=== PATIENT | female | born 1965 | race Caucasian/White ===

== ENCOUNTER 2017-12-29 08:51 | Inpatient (IN) ==
[~2017-12-29 08:51] MED LIST: ACETAMINOPHEN 500 MG TABLET PO ONE; DEXAMETHASONE 4 MG/ML INJECTION IVP ONE; EPINEPHrine PF 0.25 MG, BUPIVACAINE 0.25% PF 30 ML, KETOROLAC INJ 60 MG in NS 30 ML OPSITE ONE; FAMOTIDINE PB 20 MG/50 ML BAG IV ONE; LIDOCAINE 1% (10mg/ml) 2mL INJ PF SDV ID ONE; METOCLOPRAMIDE 10mg/2ml INJECTION IVP ONE; ONDANSETRON 4 MG/2 ML INJECTION IVP ONE; TRANEXAMIC ACID 1,000 MG in NS 100 ML IV ONE; VANCOMYCIN 1,000 MG INJECTION ONE
[2017-12-29 09:31] VITALS: BMI 37.9
[2017-12-29] MEDS: LR 1,000 ML IV SCH ×2 (09:55→13:00)
[2017-12-29] MEDS: NOZIN NASAL SWAB NAS SCH ×5 (10:32→21:29)
--- NOTE | 2017-12-29 11:45 | Anesthesia Preoperative Report ---
Anesthesia Preoperative Record - Date and Time Date: 12/29/17 Preoperative Diagnosis: Robotic total knee M17.11 primary osteoarthritis Proposed Procedure: right total knee NPO Since Date: 12/28/17 NPO Since Time: 22:00 Allergies/Adverse Reactions: Allergies Allergy/AdvReac Type Severity Reaction Status Date / Time benzoin Allergy Unknown rash Verified 12/29/17 10:01 lisinopril AdvReac Unknown Cough Verified 12/29/17 10:01 - Vital Signs Vital Signs: Temperature 98.3 F 12/29/17 09:30 Pulse Rate 78 12/29/17 09:30 Respiratory Rate 13 12/29/17 09:30 Blood Pressure 155/82 H 12/29/17 09:30 Pulse Oximetry 98 12/29/17 09:30 Height and Weight: Height 1.83 m Weight 126.9 kg Body Mass Index 37.9 - Medications Inpatient Medications: Current Medications Cefazolin Sodium (Kefzol) 3 g IVP PREOP ONE Stop: 12/29/17 12:01 Epinephrine HCl 0.25 mg/Bupivacaine HCl 30 ml/Ketorolac Tromethamine 60 mg/ Sodium Chloride 62.25 mls @ 1 mls/hr OPSITE INTRAOP ONE PRN Reason: Protocol Stop: 12/31/17 22:14 Lactated Ringer's (Lactated Ringers) 1,000 mls @ 50 mls/hr IV .Q20H [facility] Last Admin: 12/29/17 09:55 Dose: 50 mls/hr Isopropyl Alcohol (Nozin Nasal Swab) 1 each OTTO Q1M [place]ANTELLE Stop: 12/29/17 13:18 Last Admin: 12/29/17 10:39 Dose: 1 each Sodium Chloride (Iv Flush) 10 - 80 ml IV PRN PRN PRN Reason: Flushing Home Medications: Home Medications Medication Instructions Recorded Confirmed Type Levothyroxine Sodium 112 mcg PO DAILY #0 05/08/12 12/29/17 History hydroCHLOROthiazide 25 mg PO DAILY #0 tab 07/29/16 12/29/17 History [Hydrochlorothiazide] Amlodipine [Norvasc] 5 mg PO DAILY 12/23/17 12/29/17 History Multivitamin [One Daily] 1 each PO DAILY 12/23/17 12/29/17 History - Medical History Respiratory: DENIES: Sleep Apnea Cardiovascular: Reports: Hypertension Neuro/Musculoskeletal: 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 Renal/Endocrine: Reports: Thyroid Disease - Surgical History HEENT Surgeries: Reports: Oral Surgery (wisdom teeth extraction) Musculoskeletal Surgery/Tx: Reports: Orthopedic Surgery (ORIF left ankle) Reproductive Surgery/Treatment: Reports: Hysterectomy (abdominal), Tubal Ligation Anesthesia Reactions: None Hx Family Anesthesia Reaction: No - Social History Smoking Status: Never smoker Substance Use Type: does not use Alcohol Intake: current Alcohol Intake Frequency: holidays/special occasions only - Pertinent Findings Laboratory: CBC and BMP 12/29/17 09:52 BMP 12/29/17 09:52 Sodium 147 H Potassium 3.3 L Chloride 106 Carbon Dioxide 28 BUN 17.0 Creatinine 0.6 L Glucose 87 Calcium 9.9 EKG: Sinus Rhythm - Physical Exam Respiratory Exam: Present: lungs clear, bilateral breath sounds equal Cardiovascular Exam: Present: regular rate and rhythm, no murmur - Airway Assessment Mallampati Score: II TMD: 2 Fingerbreadths Neck Extension: good Overall Assessment: no airway concerns - ASA ASA Score: 2 - Plan Anesthesia: General Inhalation Gases Regional/Trunk Block: Spinal Peripheral Nerve Block: Saphenous-Right - Discussion Discussion: Discussed risks/options/alternatives of anesthesia and questions answered. Patient consents. Nursing pain assessment noted. Attestation Statement: Prior to the delivery of any anesthetic medication, I examined the patient, developed the plan, obtained the patient's consent and discussed the risk and benefits of the procedure with the patient/guardian. - Additional Information Seen by Anesthesia: Yes
[2017-12-29] MEDS ORDERED: FentaNYL 250 MCG/5 ML INJECTION ONE (11:55)
[2017-12-29] MEDS ORDERED: MIDAZOLAM 2mg/2ml INJECTION ONE (11:55)
[2017-12-29] MEDS ORDERED: BUPIVACAINE 0.75%/DEXTROSE 8.5% SPINAL 2 ML AMPULE IJ ONE (11:57)
[2017-12-29] MEDS ORDERED: LIDOCAINE 2% (100mg/5mL) PF 5ml vl ONE (11:57)
[2017-12-29] MEDS ORDERED: CEFAZOLIN 1 G INJECTION IVP ONE ×2 (12:00)
[2017-12-29] MEDS ORDERED: KETAMINE 500 MG/10 ML INJECTION ONE (12:06)
[2017-12-29] MEDS ORDERED: PROPOFOL 20 ML ONE ×2 (12:06→12:07)
[2017-12-29] MEDS ORDERED: SALINE FLUSH 10ml SYRINGE IV PRN (13:06)
[2017-12-29] MEDS ORDERED: FentaNYL 100 MCG/2 ML INJECTION IVP PRN (13:10)
[2017-12-29] MEDS ORDERED: ROPIVACAINE 0.5% (5mg/ml) 30ml INJ ONE (13:12)
--- NOTE | 2017-12-29 13:15 | Operative Note ---
- Procedure Preoperative Diagnosis: Left knee primary degenerative joint disease Postoperative Diagnosis: Same as preoperative diagnosis. Surgeon: Theresa Ramírez MD Supervisor Boiler Repair: Jaylen Lehman Complications: None. Anesthesia: Spinal. Estimated Blood Loss: See Anesthesia Record. Fluids: Please see Anesthesia Record. Description of Procedure: Jazmine and her left knee were identified and marked in the preoperative holding area. She was brought back to the operating suite. Spinal anesthetic was administered and she was placed supine on the operating table. The left lower extremity was prepped and draped in my normal sterile fashion. Timeout was performed. The [employer] robotic arm was used during the surgery. She had a varus deformity which was fixed with a flexion contracture of 8. A standard anterior midline incision followed by medial parapatellar arthrotomy was performed. Anterior fat pad and meniscus were removed. The patella was everted and a patella osteotomy was performed leaving 13 mm of bone. She complete loss of bone the medial compartment with large osteophyte both medially and laterally. Tibial and femoral arrays and checkpoints were placed both within the original incision. The bone was then registered with the [employer] robot. Osteophytes were removed and gaps were captured both 90 and 0 degrees with correction. [employer] robotic software was utilized to obtain 18 mm in flexion and 17 mm gaps and extension The [employer] robotic arm was then used to assist with the bone cuts. Posterior osteophytes and remaining meniscus were removed. Trial components were placed. We used a 5 femur and a 4 tibia with a 9 mm spacer. She tracked well and was well balanced throughout range of motion. The tibia was stamped at the proper rotation. Trial components fit well and bone quality was adequate so we proceeded with press-fit components. Components were press-fit into place. A final spacer was also placed. The knee was ranged one more time to ensure good stability, balance and patellar tracking. 1 g of vancomycin powder was then placed into the knee joint. The capsulotomy was then closed with #1 Vicryl. I then left my permit review assistant to close the subcutaneous tissue with 2-0 Vicryl. Running 4-0 Monocryl will be used in the subcuticular layer. Dermabond will be used on the skin followed by sterile dressing. After drapes are removed patient will be taken to recovery room under the care of anesthesia.
--- NOTE | 2017-12-29 13:58 | Anesthesia Postoperative Note ---
- Date and Time Date: 12/29/17 Time: 13:55 - Status Patient Participated in Evaluation: Patient Participated in Person Vital Signs: Temperature 98.3 F 12/29/17 09:30 Pulse Rate 78 12/29/17 09:30 Respiratory Rate 13 12/29/17 09:30 Blood Pressure 155/82 H 12/29/17 09:30 Pulse Oximetry 98 12/29/17 09:30 Respiratory Function: Airway Patent Cardiovascular Function: Regular Pulse EKG: Sinus Rhythm Mental Status: Alert and Oriented Pain Intensity: 0 Hydration: IV Infusing Complications During Recover: None Apparent - Follow-Up Instructions Instructions: Per Surgeon
--- NOTE | 2017-12-29 13:59 | Anesthesia Procedure Note ---
Peripheral Nerve Blockade - Procedure Physician: Zhen Ramírez MD Date: 12/29/17 Surgical Procedure: right knee arthroplasty Discussion: Discussed risks/options/alternatives of anesthesia and questions answered. Patient consents. Nursing pain assessment noted. Block Start: 13:53 Block Stop: 13:56 Blocked Employed: Adductor Canal Indication: Post-Operative Pain Approach: Right Side Confirmed Position: Supine Patient: Consent, Risks/Benefits Discussed, Informed, Post Block Act. Discussed IV Sedation: No Initial Vital Signs: Temperature 98.3 F 12/29/17 09:30 Temperature Source Oral 12/29/17 09:30 Pulse Rate 78 12/29/17 09:30 Respiratory Rate 13 12/29/17 09:30 Blood Pressure 155/82 H 12/29/17 09:30 Blood Pressure Mean 106 12/29/17 09:30 Blood Pressure Position Sitting 12/29/17 09:30 Pulse Oximetry 98 12/29/17 09:30 Oxygen Delivery Method 12/29/17 09:30 Post Vital Signs: Temperature 98.3 F 12/29/17 09:30 Pulse Rate 78 12/29/17 09:30 Respiratory Rate 13 12/29/17 09:30 Blood Pressure 155/82 H 12/29/17 09:30 Pulse Oximetry 98 12/29/17 09:30 Prep: Chlorhexadine/ETOH Ultrasound Used?: Yes - Injectate Ropivacaine (%): 0.5 Ropivacaine (mL): 15 Injection: Injection made incrementally with constant monitoring and aspiration every ml
[2017-12-29] MEDS ORDERED: ONDANSETRON 4 MG/2 ML INJECTION IVP PRN (14:26)
[2017-12-29] MEDS ORDERED: Oxycodone *IR* 5 MG TABLET PO PRN (14:26)
[2017-12-29] MEDS ORDERED: DiphenhydrAMINE 50 MG/ML INJECTION IVP PRN (14:26)
[2017-12-29] MEDS ORDERED: DiphenhydrAMINE 25 MG CAPSULE PO PRN (14:26)
[2017-12-29] MEDS ORDERED: LORazepam 1 MG TABLET PO PRN (14:26)
[2017-12-29] MEDS ORDERED: NOZIN NASAL SWAB NAS ONE (14:26)
[2017-12-29] MEDS: NS 1,000 ML IV SCH (14:46)
--- NOTE | 2017-12-29 14:48 | XRay Report ---
Indication: postoperative image PROCEDURE: XR knee RT 2V: Encounter: Initial Comparison: December 12, 2017 Findings: Postoperative changes of right total knee replacement are seen. There is expected postoperative subcutaneous gas. No evidence of hardware failure or acute fracture. No retained radiopaque surgical instruments or sponges. Overlying material causing artifact. Impression: New right total knee prosthesis without evidence of immediate complication. .
[2017-12-29] MEDS: ACETAMINOPHEN 325 MG TABLET PO SCH ×2 (17:44→21:30)
[2017-12-29] MEDS ORDERED: SENNOSIDES 8.6 MG TABLET PO SCH (21:00)
[2017-12-29] MEDS: CEFAZOLIN 3 G in NS 100 ML IV SCH (21:29)
[2017-12-29] MEDS: DOCUSATE SODIUM 100 MG CAPSULE PO SCH (21:30)
[2017-12-29] MEDS: NAPROXEN 220 MG TABLET PO SCH (21:31)
[2017-12-29] MEDS: ASPIRIN *EC* 81 MG TABLET PO SCH (21:32)
[2017-12-30] MEDS: CEFAZOLIN 3 G in NS 100 ML IV SCH (03:28)
[2017-12-30] MEDS: NS 1,000 ML IV SCH (03:28)
[2017-12-30 03:35] VITALS: RESP 18
[2017-12-30] MEDS: NOZIN NASAL SWAB NAS SCH ×2 (05:36→14:59)
[2017-12-30] MEDS ORDERED: LEVOTHYROXINE 112 MCG TABLET PO SCH (06:30)
[2017-12-30 07:22] VITALS: O2SAT 97
--- NOTE | 2017-12-30 08:35 | Orthopedic Progress Note ---
Date: Date: 12/30/17 Time: 831 Subjective/Severity of Illness: Coty is sitting up in her chair this morning when I visit. Overnight nursing called, mepilex dressing and saturated through with bloody drainage. I came in and placed stables on distal surgical incision, mepilex reapplied. This morning after ambulating scant amount of bloody drainage noted on mepilex. Otherwise, patient states her pain has been well controlled. Denies any chest pain, soa, nausea. Orthopedic Objective PO Vital signs: Temperature 96.5 F L 12/30/17 07:20 Pulse Rate 74 12/30/17 07:20 Respiratory Rate 18 12/30/17 07:20 Blood Pressure 120/69 12/30/17 07:20 Pulse Oximetry 97 12/30/17 07:20 Height and Weight: Height 6 ft Weight 127.5 kg Body Mass Index 37.9 - Constitutional General Appearance: Present: alert, orientated x3, well developed, well nourished - Respiratory Exam Present: non-labored - Cardiovascular Exam Present: pedal pulses intact - Extremities Exam Extremities: Present: pulses intact. Absent: calf tenderness, Sabrina's sign - Surgical Site Incision: Mepilex dressing intact, bloody drainage present - Neurological Exam Present: intact to light touch, no deficits Full ROM of ankle, normal ROM for s/p TKA. - Labs Result Diagrams: 12/30/17 04:05 12/30/17 04:05 Abnormal lab results 12/29/17 12/30/17 Range/Units 09:52 04:05 Sodium 147 H (134-144) MEQ/L Potassium 3.3 L (3.6-5) MEQ/L Creatinine 0.6 L 0.6 L (0.7-1.2) mg/dL BUN/Creatinine Ratio 28 H (6-26) RATIO Glucose 115 H (65-110) MG/DL Calculated Osmolality 283 H (261-280) MOSM/KG H & H 12/30/17 Range/Units 04:05 Hgb 12.8 (12-16) GM/DL Hct 38.3 (36-46) % Orthopedic Assessment and Plan (1) Primary osteoarthritis of right knee Status: Acute Assessment and Plan: Current anti-coagulation protocol with ASA 81mg BID and SCDs for VTE prophylaxis. PT/OT services to improve independent function. Discharge Planning per Case Management. - Anticoagulation Therapy Anticoagulation: ASA 81 mg PO BID x6 weeks Hospital Course Summary Disclaimer: The visit summary below is not to be considered part of the above Progress Note.
[2017-12-30] MEDS: NAPROXEN 220 MG TABLET PO SCH (08:38)
[2017-12-30] MEDS: ACETAMINOPHEN 325 MG TABLET PO SCH ×2 (08:39→12:03)
[2017-12-30] MEDS: DOCUSATE SODIUM 100 MG CAPSULE PO SCH (08:40)
[2017-12-30] MEDS: ASPIRIN *EC* 81 MG TABLET PO SCH (08:40)
[2017-12-30] MEDS ORDERED: AMLODIPINE 5 MG TABLET PO SCH (09:00)
[2017-12-30] MEDS ORDERED: POLYETHYL GLYCOL 3350 17gm PACKET PO SCH (09:00)
[2017-12-30 12:21] VITALS: BP 114/67; PULSE 86; TEMP 96.3
--- NOTE | 2017-12-30 13:08 | Discharge Summary ---
Orthopedic Discharge Info Date of admission: 12/29/17 08:51 Anticipated date of discharge: 12/30/17 Primary care physician: Bravo Kent MD Attending Physician: Zhen Ramírez MD Consults: 12/29/17 09:32 Consult to Anesthesiology [CONS] Routine Reason For Exam: Preoperative Assessment 12/29/17 14:26 Case Management Consult [CONS] Routine Reason For Exam: Discharge Planning DME-Walker [CONS] Routine Height: 6 ft Weight: 126.9 kg Total Joint Outpatient Therapy [CONS] Routine Comment: Remove dressing in 2 weeks - Discharge Diagnosis (1) Primary osteoarthritis of right knee Status: Acute - Laboratory Result Diagrams: 12/30/17 04:05 12/30/17 04:05 Laboratory: Abnormal lab results 12/30/17 Range/Units 04:05 Creatinine 0.6 L (0.7-1.2) mg/dL Glucose 115 H (65-110) MG/DL H & H 12/30/17 Range/Units 04:05 Hgb 12.8 (12-16) GM/DL Hct 38.3 (36-46) % Orthopedic Discharge HPI - HPI Comments This patient was admitted for elective surgical tx of end stage degenerative joint disease that failed to respond to conservative treatment. Further details of this is found in the admission H&P. Orthopedic Hospital Course Hospital course: 12/30/17 12:56 After appropriate preoperative clearance and signing of operative consent, the patient was given IV antibiotics, according to orthopedic protocol. The patient was taken to the operating room and underwent elective right knee arthroplasty. Following surgery, antibiotics were discontinued less than 24 hours according to joint protocol. Appropriate anticoagulants (ASA 81mg BID) were initiated and SCDs added for DVT prevention. The patient did have bloody drainage that saturated dressing, licha were applied to surgical incision with improvement of drainage. After PT, patient experienced minimally increased bloody drainage, more licha placed as precaution and Mepilex replaced. Pain control was obtained via multimodal approach. Bowel motivation addressed with scheduled and PRN medications. Early mobilization was initiated through PT services. Discharge arrangements made by a collaborative effort between the patient and Case Management. Follow-up is scheduled in 2-3 weeks. Discharge instructions given by orthopedic providers and nursing staff at discharge. Discharged home, stable, and condition was good. 12/30/17 13:08 Care extended to > 2 midnight stays?: No Discharge Plan - Med Rec/Dispo Referrals/Follow Up: Zhen Ramírez MD [Physician] - 01/23/18 9:00 am Additional Instructions: [facility] ON 01/02/2018 AT 10:45AM FOR PHYSICAL THERAPY [place]. PHONE [phone] Prescriptions: New Acetaminophen [Tylenol] 650 mg PO QID tablet Aspirin *EC* [Ecotrin] 81 mg PO BID tablet Docusate Sodium [Colace] 100 mg PO BID capsule Milk of Magnesia [Mom] 30 ml PO DAILY udc Naproxen [Aleve (Naproxen) 220 mg] 440 mg PO BID tablet Oxycodone *IR* [Roxicodone *Ir*] 5 - 15 mg PO Q3H PRN #60 tab PRN Reason: Breakthrough Pain PEG 3350 17gm PACKET [Miralax] 17 gm PO DAILY packet Continue hydroCHLOROthiazide [Hydrochlorothiazide] 25 mg PO DAILY #0 tab Amlodipine [Norvasc] 5 mg PO DAILY Levothyroxine Sodium 112 mcg PO DAILY #0 Multivitamin [One Daily] 1 each PO DAILY - Disposition 01 Discharged Home, Self-Care - Dismissal Complete Discharge Instructions are:: Complete
[2017-12-30] MEDS ORDERED: SENNOSIDES 8.6 MG TABLET PO PRN (13:37)
[2017-12-30] MEDS ORDERED: NAPROXEN 220 MG TABLET PO SCH (17:30)
[2017-12-31] MEDS ORDERED: BISACODYL 10 MG SUPPOSITORY RECTALLY SCH (20:00)
== END 2017-12-30 15:10 | disposition home or self-care (01) | DRG 470 ==
LOC: SRG 08:51
PROVIDERS: ADMIT Orthopaedic Surgery; ATTEND Orthopaedic Surgery